=== PATIENT | male | born 1970 | race Caucasian/White ===

== ENCOUNTER 2020-07-21 10:28 | Emergency (ER) | payer OTHER, SELFPAY ==
[2020-07-21 10:29] VITALS: BP 157/84; PULSE 105; RESP 16; TEMP 37.2; O2SAT 97; BMI 25.0
--- NOTE | 2020-07-21 10:53 | EKG12_ITS ---
Test Reason : SOB Blood Pressure : / mmHG Vent. Rate : 099 BPM Atrial Rate : 099 BPM P-R Int : 156 ms QRS Dur : 118 ms QT Int : 380 ms P-R-T Axes : 055 010 036 degrees QTc Int : 487 ms Normal sinus rhythm Possible Left atrial enlargement Left ventricular hypertrophy with QRS widening Prolonged QT Abnormal ECG Confirmed by KAREN POLLOCK, ALIN ([id number]), news copy editor TATA VILLANUEVA ([id number]) on 07/23/2020 10:41:48 A M Referred By: DANIS Confirmed By:CONOR JONES MD
--- NOTE | 2020-07-21 10:55 | NURSING ---
NO OLD EKGS
--- NOTE | 2020-07-21 11:02 | EDS_ITS ---
HPI History of Present Illness Chief Complaint: Shortness of Breath Informant: patient and spouse/S.O. Onset/Context/Timing Onset: Today Context: gradual Timing: Continuous Current Severity: Mild Worsened by: Lying flat Associated Symptoms Negative for cough, rhinorrhea, fever, sore throat, chills, white sputum, yellow sputum or green sputum Chest Pain: Positive for None Narrative Narrative: 50-year-old male known history of valvular heart disease and prior TN determined on either cardiac catheterization or an echocardiogram. Has known coronary disease. States that he and his came in from out of town they brittany ve about 3-1/2 hours from [place]. Today woke up with crackling in his lungs and mild shortness of breath worse supine. Denies chest pain. Denies leg pain or swelling. No history of DVT or PE. No hemoptysis. No fever or chills. No cough. Similar prior episode secondary to his valvular heart disease. 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 And a prior thyroidectomy. He denies any recent illness. PE Risk Factors: Negative for Cancer, OCP + Smoking + > 35, Prior DVT or PE, Recent immobilization and Recent surgery Prior similar symptoms: Yes Recent Illness/Hospitalization: No PFSH PFSH Home Medications furosemide [Lasix] 20 mg PO DAILY 7 Days #7 tab 07/21/20 [Rx Last Taken Unknown] potassium chloride [Klor-Con M20] 40 meq PO DAILY #10 tab 07/21/20 [Rx Last Ta richard Unknown] Allergy/AdvReac Type Severity Reaction Status Date / Time No Known Allergies Allergy Verified 07/21/20 10:31 ROS ROS ED ROS Narrative Patient denies recent illness. Review of Systems ROS Unobtainable: Denies due to encephalopathy or due to endotracheal tube Constitutional Constitutional ED: Denies chills, fever(s) or weight loss Eyes Eyes: Denies change in vision ENT ENT ED: Denies ear pain or sore throat Cardiovascular Cardiovascular: Reports orthopnea; Denies chest pain or palpitations Respiratory/Chest Respiratory/Chest: Reports dyspnea and orthopnea; Denies cough or sputum Gastrointestinal Gastrointestinal: Denies abdominal pain, constipation, diarrhea, nausea or vomiting Genitourinary Genitourinary ED: Denies dysuria or hematuria Musculoskeletal Musculoskeletal: Denies myalgias Integumentary Denies rash Neurologic Neurologic: Denies headache(s) Psychiatric Psychiatric: Denies depression Endocrine Endocrinology: Denies polyuria Hematologic/Lymphatic Hematologic/Lymphatic: Denies easy bruising Allergic/Immunologic Allergic/Immunologic ED: Denies urticaria EXAM Physical Exam Narrative Exam Narrative: Well-appearing middle-aged male. Vital signs are stable. Is afebrile. Pulse ox 97% on room air no signs hypoxia. HEENT exam unremarkable. Neck nontender no JVD. No lymphadenopathy. Lungs clear to auscultation bilaterally. Heart regular rhythm rate about 100 he does have a 4/6 systolic ejection murmur. Abdomen soft nontender normal bowel sounds no peritoneal signs. Patient moving all 4 extremities. Calves are nontender without edema or cords. Neurologically is awake alert with no focal motor deficits. Const Vital Signs: 07/21/20 10:29 Temperature 98.9 F Temperature Source Temporal Pulse Rate 105 H Respiratory Rate 16 Blood Pressure 157/84 H Blood Pressure Mean 108 Pulse Ox 97 Oxygen Delivery Method Room Air Positive well nourished and well developed; Negative for obese or cachectic General Appearance ED: well developed; Negative for cachectic Nutritional Appearance: Negative for cachectic or obese HEENT Reports moist mucous membranes atraumatic; Negative for trauma or tenderness Eyes PERRL and EOMs intact bilaterally Neck no lymphadenopathy, supple, no meningeal signs and no JVD General: Negative for tenderness Resp normal respiratory effort and clear to auscultation bilaterally Auscultation: Negative for rales, rhonchi or wheezes Cardio regular rhythm; Negative for no murmurs Cardio Narrative: 4/6 systolic ejection murmur. Rate: tachycardic GI non-tender, non-distended and no masses Auscultation: normoactive bowel sounds Palpation: soft; Negative for tender, guarding or rebound tenderness present Back/Spine no CVA tenderness and normal to inspection General Back: Negative for CVA tenderness or tenderness Extremity normal to inspection General Extremety ED: Negative for edema or tenderness General Extremity: Negative for edema Neuro oriented x3 and CN's II-XII intact bilaterally Sensorium / Orientation: alert, oriented to person and oriented to place Motor Exam: strength 5/5 throughout Psych mental status grossly normal Skin Lesions: no lesions Rashes: no rashes MDM MDM MDM Narrative Medical decision making narrative: Middle-age male with shortness of breath and orthopnea. History of valvular heart disease. Believe it may be secondary to CHF. His extremities are normal. There is no peripheral edema. Undergo a cardiac work-up. Repeat exam at 12:33 PM patient is doing very well. His vital signs are stable. His sat is in the high 90s. I had a long discussion both he and his . They are from out of town. He is feeling fine. Is not hypoxic. I do not want be admitted to the hospital. Last time he had is happening develop CHF he was treated as an outpatient with oral Lasix. Given dose of Lasix here in the emergency department. And placed him on 20 mg once a day for the next week follow-up with his catalog librarian next week. Return if he is feeling worse. Lab Data Attestation: I reviewed the patient's lab results. Lab results narrative: CBC is elevated with a white count of 15.9. Hemoglobin of 14. No bands. Electrolytes unremarkable gap of 6 creatinine 0.9. Troponin normal. Portable chest x-ray 1 view interpreted both by myself and radiologist consistent with congestive heart failure. Labs: Laboratory Results - last 24 hr 07/21/20 07/21/20 11:17 11:17 WBC 15.9 H RBC 5.37 Hgb 14.7 Hct 45.2 MCV 84.2 MCH 27.4 MCHC 32.5 RDW Std Deviation 50.4 H RDW Coeff of Aure 16.5 H Plt Count 326 MPV 11.7 Immature Gran % (Auto) 0.400 Neut % (Auto) 85.2 H Lymph % (Auto) 7.1 L [place] % (Auto) 6.7 Eos % (Auto) 0.1 Baso % (Auto) 0.5 Absolute Neuts (auto) 13.5 H Absolute Lymphs (auto) 1.12 Nucleated RBC % 0 Sodium 142 Potassium 3.8 Chloride 108 H Carbon Dioxide 28.0 Anion Gap 6 BUN 13 Creatinine 0.91 Estim Creat Clear Calc 91.87 Est GFR (MDRD) Af Amer 112 Est GFR (MDRD) Non-Af 93 BUN/Creatinine Ratio 14.3 Glucose 111 H Calcium 8.8 Troponin I < 0.015 Radiography Chest X-Ray - ED: 1 View, Read by ED Physician, Read by Radiologist, Normal, Heart, Mediastinum, Bony Structures and CHF Diagnostic Testing: Radiology Impression Chest X-Ray 07/21/20 11:24 IMPRESSION: Increased reticular nodular pattern in both lungs as described. This may represent either scarring versus possible early mild CHF. Electronically Signed: Iggy Rodrigues MD at 11:56 EDT , Service support , Rhythm Strip Rhythm Strip: Sinus Rhythm Rate: 99 Ectopy: None EKG Initial EKG: Attestation: I personally reviewed and interpreted this EKG as follows: Interpretation: Sinus Rhythm and No Acute Injury Pattern Comments: Normal sinus rhythm rate of 99. Left ventricular hypertrophy. No acute signs of TN nor ischemia. No old EKG available for comparison. Patient is from out of town. Prior EKG tracings: not available for review Discharge Plan Triage Chief Complaint: Shortness of Breath ED Provider: Bryant Godoy Dx/Rx/DC Orders Clinical Impression: Congestive heart failure, History of valvular heart disease Instructions: ED Heart Failure, Congestive (CHF) Prescriptions: New furosemide [Lasix] 20 mg tablet 20 mg PO DAILY 7 Days Qty: 7 RF: 0 potassium chloride [Klor-Con M20] 20 mEq tablet,ER particles/crystals 40 meq PO DAILY Qty: 10 RF: 0 Referrals: YASH CHOI [Other] Activity Restrictions/Additional Instructions: Start your Lasix tomorrow 20 mg once a day I typically tell people to take it in the morning. Watch her blood pressure if you feel lightheaded or dizzy have it checked. Also take potassium once a day due to the Lasix may deplete or decrease your potassium. Today her potassium is 3.8. Call and follow-up with your catalog librarian in [place] next week. Return to the emergency department if you are feeling worse. Specifically if you are more short of breath or develop swelling in your legs. Avoid salt. Disposition Disposition: Home, self care
[2020-07-21 11:22] LABS: Absolute Lymphocyte Count 1.12 X10^3/uL (0.83-4.51); Absolute Neutrophil Count 13.5 X10^3/uL (2.0-7.7); Basophil# 0.08 X10^3/uL; Basophil% 0.5 % (0-1); Eosinophil# 0.02 X10^3/uL; Eosinophils% 0.1 % (0-5); Hematocrit 45.2 % (40-54); Hemoglobin 14.7 g/dL (13.0-16.5); Lymphocyte # 1.12 X10^3/ul (0.83-4.51); Lymphocyte % 7.1 % (19-41); Mean Corp Hgb Conc 32.5 g/dL (32-36); Mean Corpuscular Hgb 27.4 pg (27.0-32.0); Mean Corpuscular Volume 84.2 fL (80-94); Mean Platelet Vol. 11.7 fl (6.2-12.0); Monocyte# 1.07 X10^3/uL; Monocyte% 6.7 % (0-10); NRBC Flagged by Analyzer 0 % (0-5); Neutrophil # 13.51 X10^3/uL (2.7-7.7); Neutrophil % 85.2 % (47-70); Platelet Count 326 K/mm3 (150-450); RBC Distribution Width CV 16.5 % (11.6-14.6); RBC Distribution Width SD 50.4 fl (35.1-43.9); Red Blood Count 5.37 M/mm3 (4.6-6.2); White Blood Count 15.9 K/mm3 (4.4-11.0)
--- NOTE | 2020-07-21 11:24 | RAD_ITS ---
STUDY: X-RAY CHEST REASON FOR EXAM: Male, 50 years old. Chest pain TECHNIQUE: Single AP portable view of the chest. COMPARISON: None. FINDINGS: Surgical clips are seen overlying the region of the thyroid gland. Increased reticular nodular pattern in both lungs. This may represent either linear fibrosis versus mild CHF.There is no demonstrated pleural abnormality. Normal size heart. Normal mediastinum and melina. Normal visualized pulmonary arteries. There is atherosclerotic calcification of the aortic arch with tortuosity. Normal visualized thoracic spine. Normal visualized ribs, clavicles, and shoulders. Surgical clips are seen in the epigastric region as well as in the left upper quadrant. RAD/Chest 1 View (Portable) IMPRESSION: Increased reticular nodular pattern in both lungs as described. This may represent either scarring versus possible early mild CHF. Electronically Signed: Iggy Rodrigues MD at 11:56 EDT , Service support ,
[2020-07-21 11:39] LABS: Anion Gap 6 (5-15); BUN 13 mg/dL (7-18); BUN/Creat Ratio 14.3 RATIO (10-20); Calcium,Total 8.8 mg/dL (8.5-10.1); Chloride 108 mmol/L (98-107); Creatinine, Serum 0.91 mg/dL (0.70-1.30); EST Glomerular Filtration Rate 93 mL/min (>60); Est Glom Filt Rate - Afr Amer 112 mL/min (>60); Estimated Creatinine Clearance 91.87 ml/min; Glucose 111 mg/dL (74-106); Potassium 3.8 mmol/L (3.5-5.1); Sodium Level 142 mmol/L (136-145)
[2020-07-21] MEDS: Furosemide 20 MG/2 ML VIAL IV (13:41)
[2020-07-21 13:48] VITALS: BP 161/87; PULSE 108; PULSE 109; RESP 18; O2SAT 97; O2SAT 98
[2020-07-21 13:52] VITALS: O2SAT 98
== END 2020-07-21 14:02 | disposition home or self-care (01) ==
PROVIDERS: Emergency Provider Emergency Medicine
DX: I50.9 Heart failure, unspecified (principal); I25.2 Old myocardial infarction; I38 Endocarditis, valve unspecified; R01.1 Cardiac murmur, unspecified; Z85.71 Personal history of Hodgkin lymphoma; Z90.81 Acquired absence of spleen; Z79.899 Other long term (current) drug therapy
CPT/HCPCS: 71045; 80048; 84484; 85025; 93005; 96374; 99284; A4216; J1940